=== PATIENT | female | born 1995 | race Hispanic/Latino ===

== ENCOUNTER 2022-05-03 17:51 | Inpatient (IN) | payer BC, OTHER ==
[2022-05-03 18:38] LABS: Hematocrit 35.4 % (36.0-45.0); Lymphocytes % 7.1 % (15.3-44.8); MCV 80.8 fL (80-100); MPV 7.4 fL (7.6-11.3); RBC Red Blood Cell Count 4.38 M/uL (3.86-4.86)
[2022-05-03] MEDS ORDERED: ACETAMINOPHEN 500 MG TAB PO ONE (18:39)
[2022-05-03] MEDS ORDERED: ACETAMINOPHEN 500 MG TAB ONE (18:45)
[2022-05-03 18:54] LABS: Albumin 2.7 g/dL (3.4-5.0); Bilirubin Total 0.3 mg/dL (0.2-1.0); Potassium 3.7 mmol/L (3.5-5.1); Protein, Total 7.2 g/dL (6.4-8.2)
[2022-05-03 19:12] LABS: SARS-COV-2 RT PCR NEGATIVE (NEGATIVE)
[2022-05-03 19:41] LABS: Specific Gravity 1.026 (1.005-1.030); Urine Bilirubin NEGATIVE (Negative); Urine Blood Negative (Negative); Urine Clarity Clear (Clear); Urine Color Yellow (Yellow); Urine Glucose NEGATIVE (Negative); Urine Mucus Slight /HPF (None Seen); Urine Protein 1+ (Negative); Urine Urobilinogen Normal (Normal); Urine pH 6.5 (5.0-7.0)
--- OUTSIDE RECORDS SUMMARY | 2022-05-03 20:37 | XMS REPORT | Continuity of Care Document ---
:1995 Author Organization [facility] t Address [address] [place] [address] Care Team Providers Name Role Phone PCP, PATIENT DOES NOT HAVE A Primary Care Physician UnavailZACH Calix Attending Clinician Unavailable Zach Lantigua MD Attending Clinician JULITA BURTON Attending Clinician Unavailable Itzel Sommer MA Attending Clinician Unavailable Julita Burton PA-C Attending Clinician Doctor Unassigned, [place] Attending Clinician Unavailable Ultrasound, Ang-Mfm Attending Clinician Unavailable Arielle Solomon MD Attending Clinician [phone] ARIELLE SOLOMON Attending Clinician Unavailable 2, [facility] Attending Clinician Unavailable Pob, [facility] Main Attending Clinician Unavailable Satya GANDHI, Michelle Huber Attending Clinician Unavailable Kathy Mar MD Attending Clinician KATHY MAR Attending Clinician Unavailable Payers Payer Name Policy Type Policy Number Effective Date Expiration Date Heracilo cordova AET[employer] CI [id number] [facility] [id number] 2020 00:00:00 [facility] [id number] 2021 [facility] STAR 00:00:00 Problems Condition Condition Condition Status Onset Resolution Last Treating Co mments Source Name Details Category Date Date Treatment Clinician Date Heartburn Heartburn Disease Active Uni vers during during 9-08 [place] 00 Medica l trimester trimester Bran ch High risk High risk Disease Active Uni vers , , 5-19 [place] Obesity in Obesity in Disease Active U nivers 5-19 ity of 00:00: [address] Obesity, Obesity, Disease Active Unive rs Class III, Class III, 5-19 it y of BMI BMI 00:00: [place] 40-49.9 40-49.9 00 Medical (morbid (morbid Branch obesity) obesity) Uterine Uterine Disease Active Univers fibroids fibroids - ity of affecting affecting 00:00: [place] , , 00 Me dical antepartum antepartum Br anch Vitamin D Vitamin D Disease Active Uni vers deficiency deficiency - it y of 00:00: [place] 00 Medical [place] Obesity Obesity Disease Active Univers (BMI (BMI 9-07 ity of 30-39.9) 30-39.9) 00:00: [place] [address] Medical [place] Allergies, Adverse Reactions, Alerts Allergy Allergy Status Severity Reaction(s) Onset Inactive Treating Comm ents Source Name Type Date Date Clinician NO KNOWN Drug Active Univers ALLERGIE Class ity of S [facility] Social History Social Habit Start Date Stop Date Quantity Comments Source ASSERTION 2021-08-18 University of 00:00:00 [facility] History [facility] University o f Alcohol Frequency [facility] edical Branch History [facility] University o f Alcohol Std [place] [facility] Drinks Branch History [facility] o f Alcohol Binge [place] Medic al Branch Exposure to 2022-04-19 2022-04-29 Not sure [facility] SARS-CoV-2 00:00:00 16:02:00 [facility] (event) Branch Alcohol intake 2022-04-29 2022-04-29 Ex-drinker [facility] 00:00:00 00:00:00 (finding) [facility] Tobacco use and 2021-12-19 2021-12-19 Smokeless tobacco Un iversity of exposure 00:00:00 00:00:00 non-user [facility] Alcohol Comment 2021-02-13 2021-02-13 Social Universit y of 00:00:00 00:00:00 [facility] Sex Assigned At [birth year] Universit y of 00:00:00 00:00:00 [facility] Smoking Status Start Date Stop Date Source Never smoked tobacco [facility] Medications Ordered Filled Start Stop Current Ordering Indication Dosage Frequency Signature Comments Components Source Medication Medication Date Date Medication? Clinician (SIG) Name Name calcium 2021-06 Yes Take by Univers carbonate 1-14 mouth. ity of (TUMS ORAL) 16:45: [address] calcium 2021-06 Yes Take by Univers carbonate 1-14 mouth. ity of (TUMS ORAL) 16:45: [address] calcium 2021-06 Yes Take by Univers carbonate 1-14 mouth. ity of (TUMS ORAL) 16:45: [address] calcium 2021-06 Yes Take by Univers carbonate 1-14 mouth. ity of (TUMS ORAL) 16:45: [address] calcium 2021-06 Yes Take by Univers carbonate 1-14 mouth. ity of (TUMS ORAL) 16:45: [address] lisdexamfet 2021-06- No 30mg Take 30 mg Univers amine 0-03 10-03 by mouth ity of (VYVANSE) 16:39: 00:00 every [place] 30 mg 29 :00 morning. Medical capsule Branch ergocalcife 2021-06- No [id number] Take Uni vers rol, 0-03 10-03 50,000 ity of vitamin d2, 16:39: 00:00 Units [place] 1,250 mcg 22 :00 mouth Medical (50,000 weekly. Branch unit) capsule Dextrometho 2021-06 Yes [id number] 10mg Take 10 mg Univers rphan HBr 0-03 by mouth 3 ity of 10 mg/5 mL 00:00: (three[place] Li[place] times Medical daily. Branch Dextrometho 2021-06 Yes [id number] 10mg Take 10 mg Univers rphan HBr 0-03 by mouth 3 ity of 10 mg/5 mL 00:00: (three[place] Li[place] times Medical daily. Branch Dextrometho 2021-06 Yes [id number] 10mg Take 10 mg Univers rphan HBr 0-03 by mouth 3 ity of 10 mg/5 mL 00:00: ([place] Li[place] 00 times Medical daily. Branch Dextrometho 2021-06 Yes [id number] 10mg Take 10 mg Univers rphan HBr 0-03 by mouth 3 ity of 10 mg/5 mL 00:00: (three[place] Li[place] 00 times Medical daily. Branch Dextrometho 2021-06 Yes [id number] 10mg Take 10 mg Univers rphan HBr 0-03 by mouth 3 ity of 10 mg/5 mL 00:00: ([place] Li[place] times Medical daily. Branch Dextrometho 2021-06 Yes [id number] 10mg Take 10 mg Univers rphan HBr 0-03 by mouth 3 ity of 10 mg/5 mL 00:00: ([place] 00 times Medical daily. Branch Dextrometho 2021-06 Yes [id number] 10mg Take 10 mg Univers rphan HBr 0-03 by mouth 3 ity of 10 mg/5 mL 00:00: ([place] times Medical daily. Branch Dextrometho 2021-06 Yes [id number] 10mg Take 10 mg Univers rphan HBr 0-03 by mouth 3 ity of 10 mg/5 mL 00:00: ([place] times Medical daily. Branch Dextrometho 2021-06 Yes [id number] 10mg Take 10 mg Univers rphan HBr 0-03 by mouth 3 ity of 10 mg/5 mL 00:00: ([place] times Medical daily. Branch Dextrometho 2021-06 Yes [id number] 10mg Take 10 mg Univers rphan HBr 0-03 by mouth 3 ity of 10 mg/5 mL 00:00: ([place] Li[place] times Medical daily. Branch Dextrometho 2021-06 Yes [id number] 10mg Take 10 mg Univers rphan HBr 0-03 by mouth 3 ity of 10 mg/5 mL 00:00: ([place] times Medical daily. Branch Dextrometho 2021-06 Yes [id number] 10mg Take 10 mg Univers rphan HBr 0-03 by mouth 3 ity of 10 mg/5 mL 00:00: (three[place] times Medical daily. Branch FOLIC ACID 2021- No Take by Uni vers ORAL 9-08 09-08 mouth. ity of 21:35: 00:00 [place] 32 :00 Medical Branch famotidine 2022-0 Yes [id number] 20mg Take 1 U nivers 20 mg 9-08 tablet by ity of tablet 00:00: mouth in [place] 00 the Medical morning Branch and 1 tablet in the evening. famotidine 2022-0 Yes [id number] 20mg Take 1 U nivers 20 mg 9-08 tablet by ity of tablet 00:00: mouth in [place] 00 the Medical morning Branch and 1 tablet in the evening. famotidine 2022-0 Yes [id number] 20mg Take 1 U nivers 20 mg 9-08 tablet by ity of tablet 00:00: mouth in [place] 00 the Medical morning Branch and 1 tablet in the evening. famotidine 2022-0 Yes [id number] 20mg Take 1 U nivers 20 mg 9-08 tablet by ity of tablet 00:00: mouth in [place] [address] the Medical morning Branch and 1 tablet in the evening. famotidine 2022-0 Yes [id number] 20mg Take 1 U nivers 20 mg 9-08 tablet by ity of tablet 00:00: mouth in [place] [address] the Medical morning Branch and 1 tablet in the evening. famotidine 2022-0 Yes [id number] 20mg Take 1 U nivers 20 mg 9-08 tablet by ity of tablet 00:00: mouth in [place] [address] the Medical morning Branch and 1 tablet in the evening. famotidine 2022-0 Yes [id number] 20mg Take 1 U nivers 20 mg 9-08 tablet by ity of tablet 00:00: mouth in [place] [address] the Medical morning Branch and 1 tablet in the evening. famotidine 2022-0 Yes [id number] 20mg Take 1 U nivers 20 mg 9-08 tablet by ity of tablet 00:00: mouth in [place] [address] the Medical morning Branch and 1 tablet in the evening. famotidine 2022-0 Yes [id number] 20mg Take 1 U nivers 20 mg 9-08 tablet by ity of tablet 00:00: mouth in [place] [address] the Medical morning Branch and 1 tablet in the evening. famotidine 2022-0 Yes [id number] 20mg Take 1 U nivers 20 mg 9-08 tablet by ity of tablet 00:00: mouth in [place] [address] the Medical morning Branch and 1 tablet in the evening. famotidine 2022-0 Yes [id number] 20mg Take 1 U nivers 20 mg 9-08 tablet by ity of tablet 00:00: mouth in [place] 00 the Medical morning Branch and 1 tablet in the evening. famotidine 2022-0 Yes [id number] 20mg Take 1 U nivers 20 mg 9-08 tablet by ity of tablet 00:00: mouth in [place] 00 the Medical morning Branch and 1 tablet in the evening. famotidine 2022-0 Yes [id number] 20mg Take 1 U nivers 20 mg 9-08 tablet by ity of tablet 00:00: mouth in [place] 00 the Medical morning Branch and 1 tablet in the evening. FOLIC ACID 2021-0 Yes Take by [facility] ORAL 8-10 mouth. ity of 16:36: [address] Branch FOLIC ACID 2021-0 Yes Take by [facility] ORAL 8-10 mouth. ity of 16:36: [address] Branch PNV 67-iron 2021-0 Yes [id number] 1{capsu Take 1 Univers ps-folate 6-17 le} capsule by ity of no.1-dha 00:00: mouth [place] (VITAFOL 00 daily. Medical ULTRA) 29 Branch mg iron- 1 mg-200 mg Cap PNV 67-iron 2021-0 Yes [id number] 1{capsu Take 1 Univers ps-folate 6-17 le} capsule by ity of no.1-dha 00:00: mouth [place] (VITAFOL 00 daily. Medical ULTRA) 29 Branch mg iron- 1 mg-200 mg Cap PNV 67-iron 2021-0 Yes [id number] 1{capsu Take 1 Univers ps-folate 6-17 le} capsule by ity of no.1-dha 00:00: mouth [place] (VITAFOL 00 daily. Medical ULTRA) 29 Branch mg iron- 1 mg-200 mg Cap PNV 67-iron 2021-0 Yes [id number] 1{capsu Take 1 Univers ps-folate 6-17 le} capsule by ity of no.1-dha 00:00: mouth [place] (VITAFOL 00 daily. Medical ULTRA) 29 Branch mg iron- 1 mg-200 mg Cap PNV 67-iron 2021-0 Yes [id number] 1{capsu Take 1 Univers ps-folate 6-17 le} capsule by ity of no.1-dha 00:00: mouth [place] (VITAFOL 00 daily. Medical ULTRA) 29 Branch mg iron- 1 mg-200 mg Cap PNV 67-iron 2022-0 Yes [id number] 1{capsu Take 1 Univers ps-folate 6-17 le} capsule by ity of no.1-dha 00:00: mouth [place] (VITAFOL 00 daily. Medical ULTRA) 29 Branch mg iron- 1 mg-200 mg Cap PNV 67-iron 2022-0 Yes [id number] 1{capsu Take 1 Univers ps-folate 6-17 le} capsule by ity of no.1-dha 00:00: mouth [place] (VITAFOL 00 daily. Medical ULTRA) 29 Branch mg iron- 1 mg-200 mg Cap PNV 67-iron 2022-0 Yes [id number] 1{capsu Take 1 Univers ps-folate 6-17 le} capsule by ity of no.1-dha 00:00: mouth [place] (VITAFOL 00 daily. Medical ULTRA) 29 Branch mg iron- 1 mg-200 mg Cap PNV 67-iron 2022-0 Yes [id number] 1{capsu Take 1 Univers ps-folate 6-17 le} capsule by ity of no.1-dha 00:00: mouth [place] (VITAFOL 00 daily. Medical ULTRA) 29 Branch mg iron- 1 mg-200 mg Cap PNV 67-iron 2-0 Yes [id number] 1{capsu Take 1 Univers ps-folate 6-17 le} capsule by ity of no.1-dha 00:00: mouth [place] (VITAFOL 00 daily. Medical ULTRA) 29 Branch mg iron- 1 mg-200 mg Cap PNV 67-iron 2-0 Yes [id number] 1{capsu Take 1 Univers ps-folate 6-17 le} capsule by ity of no.1-dha 00:00: mouth [place] (VITAFOL 00 daily. Medical ULTRA) 29 Branch mg iron- 1 mg-200 mg Cap PNV 67-iron 2022-0 Yes [id number] 1{capsu Take 1 Univers ps-folate 6-17 le} capsule by ity of no.1-dha 00:00: mouth [place] (VITAFOL 00 daily. Medical ULTRA) 29 Branch mg iron- 1 mg-200 mg Cap PNV 67-iron 2022-0 Yes [id number] 1{capsu Take 1 Univers ps-folate 6-17 le} capsule by ity of no.1-dha 00:00: mouth [place] (VITAFOL 00 daily. Medical ULTRA) 29 Branch mg iron- 1 mg-200 mg Cap PNV 67-iron 2021-0 Yes [id number] 1{capsu Take 1 Univers ps-folate 6-17 le} capsule by ity of no.1-dha 00:00: mouth [place] (VITAFOL 00 daily. Medical ULTRA) 29 Branch mg iron- 1 mg-200 mg Cap PNV 67-iron 0 Yes [id number] 1{capsu Take 1 Univers ps-folate 6-17 le} capsule by ity of no.1-dha 00:00: mouth [place] (VITAFOL 00 daily. Medical ULTRA) 29 Branch mg iron- 1 mg-200 mg Cap PNV 67-iron 0 Yes [id number] 1{capsu Take 1 Univers ps-folate 6-17 le} capsule by ity of no.1-dha 00:00: mouth [place] (VITAFOL 00 daily. Medical ULTRA) 29 Branch mg iron- 1 mg-200 mg Cap PNV 67-iron 0 Yes [id number] 1{capsu Take 1 Univers ps-folate 6-17 le} capsule by ity of no.1-dha 00:00: mouth [place] (VITAFOL 00 daily. Medical ULTRA) 29 Branch mg iron- 1 mg-200 mg Cap FOLIC ACID Yes Take by [facility] ers ORAL 5-19 mouth. ity of 15:11: [place] 15 Medical Branch lisdexamfet 2021-0 Yes 30mg Take 30 mg Univers amine 1-28 by mouth ity of (VYVANSE) 13:38: every [place] 30 mg 57 morning. Medical capsule Branch ergocalcife 2021-0 Yes [id number] Take Univ ers rol, 1- 50,000 ity of vitamin d2, 13:38: Units [place] 1,250 mcg 57 mouth Medical (50,000 weekly. Branch unit) capsule lisdexamfet 0 Yes 30mg Take 30 mg Univers amine 1-28 by mouth ity of (VYVANSE) 13:38: every [place] 30 mg 57 morning. Medical capsule Branch ergocalcife 2021-0 Yes [id number] Take Univ ers rol, 1-28 50,000 ity of vitamin d2, 13:38: Units [place] 1,250 mcg 57 mouth Medical (50,000 weekly. Branch unit) capsule lisdexamfet 2-0 Yes 30mg Take 30 mg Univers amine 1-28 by mouth ity of (VYVANSE) 13:38: every [place] 30 mg 57 morning. Medical capsule Branch ergocalcife 2-0 Yes [id number] Take Univ ers rol, 1- 50,000 ity of vitamin d2, 13:38: Units [place] 1,250 mcg 57 mouth Medical (50,000 weekly. Branch unit) capsule lisdexamfet 2-0 Yes 30mg Take 30 mg Univers amine 1-28 by mouth ity of (VYVANSE) 13:38: every [place] 30 mg 57 morning. Medical capsule Branch ergocalcife 2-0 Yes [id number] Take Univ ers rol, 1-28 50,000 ity of vitamin d2, 13:38: Units [place] 1,250 mcg 57 mouth Medical (50,000 weekly. Branch unit) capsule lisdexamfet 2-0 Yes 30mg Take 30 mg Univers amine 1-28 by mouth ity of (VYVANSE) 13:38: every [place] 30 mg 57 morning. Medical capsule Branch ergocalcife 2-0 Yes [id number] Take Univ ers rol, 1- 50,000 ity of vitamin d2, 13:38: Units [place] 1,250 mcg 57 mouth Medical (50,000 weekly. Branch unit) capsule Immunizations Ordered Filled Immunization Date Status Comments [facility] e Immunization Name Name [facility] 2022-03-11 Completed University of 00:00:00 [facility] TDAP 2022-03-11 Completed University of 00:00:00 [facility] TDAP 2022-03-11 Completed University of 00:00:00 [facility] TDAP 2022-03-11 Completed University of 00:00: [facility] TDAP 2022-03-11 Completed University of 00:00:00 [facility] TDAP 2022-03-11 Completed University of 00:00:00 [facility] TDAP 2022-03-11 Completed University of 00:00:00 [facility] TDAP 2022-03-11 Completed University of 00:00:00 [facility] TDAP 2022-03-11 Completed University of 00:00:00 [place] [facility] TDAP 2022-03-11 Completed University of 00:00:00 [place] [facility] TDAP 2022-03-11 Completed University of 00:00:00 [place] [facility] TDAP 2022-03-11 Completed University of 00:00:00 [facility] Branch Vital Signs Vital Name Observation Time Observation Value Comments Source Systolic blood 2022-04-29 22:23:00 121 mm[Hg] Univer sity of pressure [place] [facility] Diastolic blood 2022-04-29 22:23:00 78 mm[Hg] Unive rsity of pressure [place] [facility] Heart rate 2022-04-29 22:23:00 105 /min Universi ty of [place] [facility] Body temperature 2022-04-29 22:23:00 36.72 Raiza Univ ersity of [place] [facility] Respiratory rate 2022-04-29 22:23:00 18 /min Univ ersity of [place] [facility] Body height 2022-04-29 22:23:00 160 cm Universi ty of [place] [facility] Body weight 2022-04-29 22:23:00 115.032 kg Universi ty of [place] [facility] BMI 2022-04-29 22:23:00 44.92 kg/m2 Universi ty of [place] [facility] Systolic blood 2022-04-22 22:44:00 116 mm[Hg] Univer sity of pressure [place] [facility] Diastolic blood 2022-04-22 22:44:00 75 mm[Hg] Unive rsity of pressure [place] [facility] Heart rate 2022-04-22 22:44:00 78 /min Universi ty of [place] [facility] Body temperature 2022-04-22 22:44:00 37 Raiza Univ ersity of [place] [facility] Body height 2022-04-22 22:44:00 160 cm Universi ty of [place] [facility] Body weight 2022-04-22 22:44:00 115.486 kg Universi ty of [place] [facility] BMI 2022-04-22 22:44:00 45.10 kg/m2 Universi ty of [place] [facility] Systolic blood 2022-04-11 21:37:00 116 mm[Hg] Univer sity of pressure [place] [facility] Diastolic blood 2022-04-11 21:37:00 80 mm[Hg] Unive rsity of pressure [place] [facility] Heart rate 2022-04-11 21:37:00 99 /min Universi ty of [place] [facility] Body temperature 2022-04-11 21:37:00 36.94 Raiza Univ ersity of [place] [facility] Respiratory rate 2022-04-11 21:37:00 18 /min Univ ersity of [place] [facility] Body height 2022-04-11 21:37:00 160 cm Universi ty of [place] [facility] Body weight 2022-04-11 21:37:00 113.036 kg Universi ty of [place] [facility] BMI 2022-04-11 21:37:00 44.14 kg/m2 Universi ty of [place] [facility] Systolic blood 2022-03-26 21:19:00 133 mm[Hg] Univer sity of pressure [place] [facility] Diastolic blood 2022-03-26 21:19:00 84 mm[Hg] Unive rsity of pressure [place] [facility] Heart rate 2022-03-26 21:19:00 106 /min Universi ty of [place] [facility] Body temperature 2022-03-26 21:19:00 36.89 Raiza Univ ersity of [place] [facility] Respiratory rate 2022-03-26 21:19:00 18 /min Univ ersity of [place] [facility] Body height 2022-03-26 21:19:00 160 cm Universi ty of [place] [facility] Body weight 2022-03-26 21:19:00 113.399 kg Universi ty of [place] [facility] BMI 2022-03-26 21:19:00 44.29 kg/m2 Universi ty of [place] [facility] Systolic blood 2022-03-11 21:23:00 113 mm[Hg] Univer sity of pressure [place] [facility] Diastolic blood 2022-03-11 21:23:00 79 mm[Hg] Unive rsity of pressure [place] [facility] Heart rate 2022-03-11 21:23:00 86 /min Universi ty of [place] [facility] Body temperature 2022-03-11 21:23:00 36.94 Raiza Univ ersity of [place] [facility] Respiratory rate 2022-03-11 21:23:00 18 /min Univ ersity of [place] [facility] Body height 2022-03-11 21:23:00 160 cm Universi ty of [place] [facility] Body weight 2022-03-11 21:23:00 111.131 kg Universi ty of [place] [facility] BMI 2022-03-11 21:23:00 43.40 kg/m2 Universi ty of [facility] Systolic blood 2022-02-14 21:33:00 118 mm[Hg] Univer sity of pressure [facility] Diastolic blood 2022-02-14 21:33:00 70 mm[Hg] Unive rsity of [facility] Heart rate 2022-02-14 21:33:00 101 /min Universi ty [facility] Body temperature 2022-02-14 21:33:00 36.5 [facility] 2022-02-14 21:33:00 160 cm Universi ty of [facility] Body weight 2022-02-14 21:33:00 110.768 kg Universi ty [facility] BMI 2022-02-14 21:33:00 43.26 kg/m2 Universi ty [facility] Systolic blood 2022-01-16 21:36:00 110 mm[Hg] Univer sity of [facility] Diastolic blood 2022-01-16 21:36:00 73 mm[Hg] Unive rsity of [facility] Heart rate 2022-01-16 21:36:00 97 /min Universi ty [facility] Body temperature 2022-01-16 21:36:00 36.83 [facility] Body height 2022-01-16 21:36:00 160 cm Universi ty [facility] Body weight 2022-01-16 21:36:00 [facility] BMI 2022-01-16 21:36:00 42.83 kg/m2 [facility] Procedures Procedure Date / Time Performed Performing Clinician Sourc e POCT URINALYSIS W/O 2022-04-29 00:00:00 Zach Lantigua [facility] SPECIFIC GRAVITY [facility] GC & CHLAMYDIA 2022-04-22 22:48:00 Julita Burton [place] AMPLIFIED ASSAY [facility] DSU PRE-OP 2022-04-22 06:01:00 Doctor Unassigned, [facility] W/O 2022-04-22 00:00:00 Julita Burton [facility] POCT URINALYSIS W/O 2022-04-11 21:49:00 Zach Lantigua [facility] DISABILITY/FMLA 2022-04-04 05:01:00 Doctor Unassigned, Jeri Zuniga [facility] NON-STRESS TEST 2022-03-27 02:12:04 Zach Lantigua [facility] POCT URINALYSIS W/O 2022-03-26 00:00:00 Julita Burton [facility] TDAP VACCINE, >11 YRS, 2022-03-11 21:58:20 Julita Burton [facility] POCT URINALYSIS W/O 2022-03-11 21:41:00 Julita Burton [facility] POCT URINALYSIS W/O 2022-02-14 00:00:00 Zach Lantigua [facility] POCT URINALYSIS W/O 2022-01-16 [facility] 2021-12-12 05:01:00 Doctor Unassigned, Jeri Anne [facility] Encounters Start End Encounter Admission Attending Care Care Encounter Source Date/Time Date/Time Type Type Clinicians Facility Department ID 2021-09-07 Outpatient ALYCE MEAD [id number] [place] 14:38:18 [id number] [facility] 2021-09-05 Outpatient ALYCE MEAD [id number] [place] 13:08:44 [id number] [facility] 2022-05-06 2022-05-06 Outpatient R ZACH LANTIGUA [facility] [id number] Univers 16:15:00 [facility] 2022-04-29 Outpatient ZACH EDMONDS FLISABELLA [facility] [id number] Univers 15:45:00 16[facility]48:[facility]22-04-29 2022-04-29 Routine Zach Lantigua [facility] [id number] Univers 15:45:00 16:48:53 Joesph NAVARRETE 350.1.13.10 ity of [place] [id number] [address] 2022-04-29 2022-04-29 Outpatient R MICHEAL [facility] [id number] Univers 16:30:00 16:30:00 JULITA ity [facility] 2022-04-23 2022-04-23 Patient Ros [facility] [id number] Univers 00:00:00 00:00:00 Secure Msg Itzel SIMS 350.1.13.10 ity of P[place] [facility] [id number] [address] 2022-04-22 2022-04-22 Outpatient R MICHEAL [facility] [id number] Univers 16:15:00 17:18:07 JULITA [facility] 2022-04-22 2022-04-22 Routine Zach Lantigua [facility] [id number] Univers 16:15:00 17:18:07 Julita Burton 350.1.13.10 ity of [place] [id number] [address] 2022-04-22 2022-04-22 Orders Doctor BABATUNDE [id number] Univers 00:00:00 00:00:00 Only Unassigned, OSCAR 350.1.13.10 ity of [place] [facility] 4.2.7.2.686 [place] as [id number] [address] 2022-04-19 2022-04-19 Farm Helper Ultrasound, LuisMfcarolyn [facility] [id number] .[id number] Univers 15:30:00 16:00:00 Visit Arielle Solomon HEALTH CARE MANAGER 350.1. 13.10 ity of [facility] 4.2.7.2.686 [place] as MATERNAL [id number] Med ical & CHILD [address] [place] [address] 2022-04-19 2022-04-19 Outpatient P JUANITO [facility] [id number] Univers 15:30:00 15:30:00 CHASEY ity of [facility] 2022-04-12 2022-04-12 Outpatient R [facility] [id number] Univers 16:15:00 16:15:00 ity of [facility] 2022-04-11 2022-04-11 Outpatient R ZACH LANTIGUA [facility] [id number] Univers 16:15:00 17:16:33 ity of [facility] 2022-04-11 2022-04-11 Routine Zach Lantigua [facility] [id number] Univers 16:15:00 17:16:33 Cam LANDON 350.1.13.10 ity of [place] [id number] Pr dic[address] 2022-04-04 2022-04-04 Orders Doctor BABATUNDE [id number] Univers 00:00:00 00:00:00 Only Unassigned, OSCAR 350.1.13.10 ity of [place] [facility] 4.2.7.2.686 [place] [id number] [address] 2022-03-27 2022-03-27 Telephone [facility]igua [facility] [facility] 1.2.840.114 [id number] Univers 00:00:00 00:00:00 Cam LANDON 350.1.13.10 i [place] [phone] Pr dical NAL [address] [place] [address] 2022-03-26 2022-03-26 Outpatient R ZACH LANTIGUA [facility] [id number] Univers 16:00:00 17:11:51 ity of [facility] 2022-03-26 2022-03-26 Routine Zach Lantigua [facility] 1.2.390.048 [id number] Univers 16:00:00 17:11:51 Cam LANDON 350.1.13.10 ity of [place] [phone] Pr dical NAL [address] [place] [address] 2022-03-14 2022-03-14 Farm Helper Pilo, Mary Kate [facility] 1.2 .840.114 [id number] Univers 15:15:00 15:54:45 Visit Arielle Solomon HEALTH CARE MANAGER 350.1. 13.10 ity of REGIONAL 4.2.7.2.686 [place] MATERNAL [phone] [facility] ical & CHILD [address] [place] [address] 2022-03-14 2022-03-14 Outpatient P JUANITO [facility] [id number] Univers 15:15:00 15:15:00 [facility]-03-11 2022-03-11 Outpatient R MICHEAL [facility] [id number] Univers 16:30:00 17:11:17 JULITA [facility] 2022-03-11 2022-03-11 Routine Micheal [facility] 1.2.104.083 [id number] Univers 16:30:00 17:11:17 Julita NAVARRETE 350.1.13.10 ity of [place] [phone] Pr dic[address] 2022-03-07 2022-03-07 Outpatient R MICHEAL [facility] [id number] Univers 16:15:00 16:15:00 JULITA [facility] 2022-02-14 2022-02-14 Outpatient R ZACH LANTIGUA [facility] [id number] Univers 16:15:00 16:58:31 itshai [facility] 2022-02-14 2022-02-14 Routine Zach Lantigua [facility] 1.2.290.596 [id number] Univers 16:15:00 16:58:31 Joesph NAVARRETE 350.1.13.10 ity of [place] [phone] Pr dical NAL [address] [place] [address] 2022-01-28 2022-01-28 Farm Helper 2, Adc Lab [facility] 1.2.840.114 [id number] Univers 15:30:00 15:45:00 Visit Terell Zach Joesph NAVARRETE 350.1.13.10 it[place] [phone] Pr dical NAL [address] [facility] 2022-01-28 2022-01-28 Outpatient R ZACH LANTIGUA [facility] [id number] Univers 15:30:00 15:30:00 ity of [facility] 2022-01-22 2022-01-22 Outpatient P [facility] [id number] Univers 15:00:00 15:00:00 ity of [facility] 2022-01-16 2022-01-16 Outpatient R MICHEAL [facility] [id number] Univers 16:15:00 17:06:45 JULITA ity [facility] 2022-01-16 2022-01-16 [facility] 1.2.635.152 [id number] Univers 16:15:00 17:06:45 Julita NAVARRETE 350.1.13.10 ity of [place] [phone] Pr dical NAL [address] [facility] 2021-12-19 2021-12-19 Outpatient R ZACH LANTIGUA [facility] [id number] Univers 16:15:00 17:18:10 ity of [facility] 2021-12-19 2021-12-19 Routine Terell Zach [facility] 1.2.532.622 [id number] Univers 16:15:00 17:18:10 Joesph VLADIMIRJASMIN 350.1.13.10 ity of Visit [facility] [place] [phone] Pr dical NAL [address] [facility] 2021-12-19 2021-12-19 Orders Doctor BABATUNDE 1.2.840.114 [id number] Univers 00:00:00 00:00:00 Only Unassigned, OSCAR 350.1.13.10 ity of [place] [facility] 4.2.7.2.686 [place] as [phone] [address] 2021-12-182021-12-18 Telephone Zach Lantigua [facility] 1.2.840.114 [id number] Univers 00:00:00 00:00:00 Joesph NAVARRETE 350.1.13.10 i ty of [place] [phone] Pr dical [facility] [address] [facility] 2021-12-12 2021-12-12 Farm Helper Chel, Lorenzo Lab Main [facility] 1.2.8 40.114 [id number] Univers 08:00:00 08:15:00 Visit Zach Lantigua [place] 350.1.13.10 ity of [place] [phone] [facility] [address] [facility] 2021-12-12 2021-12-12 Outpatient R ZACH LANTIGUA [facility] [id number] Univers 08:00:00 08:00:00 ity of [facility] 2021-12-12 2021-12-12 Orders Doctor BABATUNDE 1.2.840.114 [id number] Univers 00:00:00 00:00:00 Only Unassigned, OSCAR 350.1.13.10 ity of [place] [facility] 4.2.7.2.686 [place] as [phone] [address] 2021-11-23 2021-11-23 [facility] 1.2.840.114 [id number] Univers 00:00:00 00:00:00 Julita NAVARRETE 350.1.13.10 i ty [place] [phone] [facility] [address] [facility] 2021-11-22 2021-11-22 Outpatient R MICHEAL [facility] [id number] Univers 16:15:00 17:13:09 JULITA pérez [facility] 2021-11-22 2021-11-22 [facility] 1.2.382.308 [id number] Univers 16:15:00 17:13:09 Julita NAVARRETE 350.1.13.10 ity of [place] [phone] Pr dical NAL [address] [facility] 2021-11-20 2021-11-20 Farm Helper Lorenzo Milligan Lab Main [facility] 1.2.8 40.114 [id number] Univers 07:30:00 07:45:00 Visit Zach Lantigua 350.1.13.10 ity of [place] [phone] Pr dical NAL [address] [facility] 2021-11-20 2021-11-20 Outpatient R ZACH LANTIGUA [facility] [id number] Univers 07:30:00 07:30:00 ity [facility] 2021-11-19 2021-11-19 Outpatient R MICHEAL [facility] [id number] Univers 07:30:00 07:30:00 [facility]-11 2021-11-11 Nurse BABATUNDE Hernadez 1.2.840.114 [id number] Univers 00:00:00 00:00:00 Triage Michelle MOORE 350.1.13.10 ity [facility] 4.2.7.2.686 [place] [phone] [address] 2021-11-02 2021-11-02 Outpatient R [facility] [id number] Univers 09:00:00 09:00:00 ity [facility] 2021-11-01 2021-11-01 Outpatient R [facility] [id number] Univers 07:30:00 07:30:00 ity [facility] 2021-11-01 2021-11-01 Telephone Zach Lantigua [facility] 1.2.840.114 [id number] Univers 00:00:00 00:00:00 Joesph NAVARRETE 350.1.13.10 i ty of [place] [phone] Pr dical NAL [address] [facility] 2021-10-25 2021-10-25 Outpatient R ZACH LANTIGUA [facility] [id number] Univers 14:30:00 16:06:50 ity [facility] 2021-10-25 2021-10-25 Initial Zach Lantigua [place] 1.2.950.338 [id number] Univers 14:30:00 16:06:50 Cam LANDON 350.1.13.10 ity of [place] [phone] Pr dic[address] 2021-10-25 2021-10-25 Orders Doctor BABATUNDE 1.2.840.114 [id number] Univers 00:00:00 00:00:00 Only Unassigned, OSCAR 350.1.13.10 ity of [place] [facility] 4.2.7.2.686 [place] as [phone] [address] 2021-07-09 2021-07-09 Letter Ad, [facility] 1.2.840.114 [id number] Univers 00:00:00 00:00:00 (Out) Kathy NAVARRETE 350.1.13.10 ity [place] [phone] [address] 2021-07-09 2021-07-09 Telephone Ad, [facility] 1.2.335.322 [id number] Univers 00:00:00 00:00:00 Kathy NAVARRETE 350.1.13.10 ity of [place] [phone] Pr dical [address] 2021-07-06 2021-07-06 Office Ad, [facility] 1.2.840.114 [id number] Univers 13:00:00 14:12:28 Visit Kathy NAVARRETE 350.1.13.10 ity [place] [phone] Pr dical [address] 2021-07-06 2021-07-06 Outpatient R ADUM, [facility] [id number] Univers 13:00:00 13:00:00 KATHY ity [facility] 2021-07-06 2021-07-06 Outpatient R [facility] [id number] Univers 13:00:00 13:00:00 ity of [facility] 2021-07-06 2021-07-06 Farm Helper Chel, Adc Lab Main [facility] 1.2.8 40.114 [id number] Univers 09:45:00 10:00:00 Visit Adum, Kathy Pisano [place] 350.1.13.10 ity of [facility] [place] [phone] Pr dical NAL [address] [facility] 2021-07-06 2021-07-06 Outpatient R ADUM, [facility] [id number] Univers 09:45:00 09:45:00 KATHY itshai [facility] 2021-07-06 2021-07-06 Outpatient R ADUM, [facility] [id number] Univers 09:45:00 09:45:00 KATHY itshai [facility] 2021-07-05 2021-07-05 Telephone Ad, [facility] 1.2.215.825 [id number] Univers 00:00:00 00:00:00 Kathy NAVARRETE 350.1.13.10 ity of [facility] [place] [phone] Pr dical NAL [address] [facility] 2021-05-23 2021-05-23 Telephone Ad, [facility] 1.2.951.245 [id number] Univers 00:00:00 00:00:00 Kathy NAVARRETE 350.1.13.10 ity of [facility] [place] [phone] Pr dical [facility] [address] [facility] 2021-05-23 2021-05-23 Orders Doctor BABATUNDE 1.2.840.114 [id number] Univers 00:00:00 00:00:00 Only Unassigned, OSCAR 350.1.13.10 ity of [place] [facility] 4.2.7.2.686 [place] as [phone] [address] 2021-05-23 2021-05-23 Telephone Adum, [facility] 1.2.502.622 [id number] Univers 00:00:00 00:00:00 Kathy Pisano [place] 350.1.13.10 ity of [facility] [place] [phone] Pr dical NAL [address] [place] [address] 2021-05-21 2021-05-21 Refill Adum, [facility] 1.2.840.114 [id number] Univers 00:00:00 00:00:00 Kathy L [place] 350.1.13.10 ity of [place] [phone] Pr dical NAL [address] [place] [address] 2021-05-16 2021-05-16 Outpatient R ADUM, [facility] [id number] Univers 00:00:00 00:00:00 KATHY ity [facility] 2021-05-16 2021-05-16 Outpatient R ADUM, [facility] [id number] Univers 00:00:00 00:00:00 KATHY ity [facility] 2021-05-11 2021-05-11 Outpatient R ADUM, [facility] [id number] Univers 14:00:00 14:00:00 KATHY ity [facility] 2021-05-10 2021-05-10 Telephone Ad, [facility] 1.2.851.114 [id number] Univers 00:00:00 00:00:00 Kathy L [place] 350.1.13.10 ity of [facility] [place] [phone] Pr dical NAL [address] [place] [address] 2021-05-08 2021-05-08 Telephone Ad, [facility] 1.2.305.152 [id number] Univers 00:00:00 00:00:00 Kathy L [place] 350.1.13.10 ity of [place] [phone] Pr dical NAL [address] [place] [address] 2021-05-02 2021-05-02 Telephone Ad, [facility] 1.2.515.647 [id number] Univers 00:00:00 00:00:00 Kathy L [place] 350.1.13.10 ity of [place] [phone] Pr dical NAL [address] [place] [address] 2021-04-11 2021-04-11 Telephone Adum, [facility] 1.2.917.046 [id number] Univers 00:00:00 00:00:00 Kathy GILBERTJASMIN 350.1.13.10 ity of [place] [phone] Pr dical NAL [address] [place] [address] 2021-04-11 2021-04-11 Telephone Adum, [facility] 1.2.388.698 [id number] Univers 00:00:00 00:00:00 Kathy NAVARRETE 350.1.13.10 ity of [place] [phone] Pr dical NAL [address] [place] [address] 2021-04-06 2021-04-06 Outpatient R ADUM, [facility] [id number] [facility] 14:00:00 15:14:35 KATHY itshai of [facility] 2021-04-06 2021-04-06 Office Adum, [facility] 1.2.840.114 [id number] Univers 13:22:21 15:14:35 Visit Ktahy NAVARRETE 350.1.13.10 ity of [facility] [place] [phone] Pr dic[address] 2021-04-06 2021-04-06 Outpatient R ADUM, [facility] [id number] Univers 14:00:00 14:00:00 KATHY pérez of [facility] 2021-04-06 2021-04-06 Orders Doctor BABATUNDE 1.2.840.114 [id number] Univers 00:00:00 00:00:00 Only Unassigned, OSCAR 350.1.13.10 ity of [place] [facility] 4.2.7.2.686 [place] as [phone] [address] 2021-03-07 2021-03-07 Orders Doctor BABATUNDE 1.2.840.114 [id number] Univers 00:00:00 00:00:00 Only Unassigned, OSCAR 350.1.13.10 ity of [place] [facility] 4.2.7.2.686 [place] as [phone] [address] 2021-02-21 2021-02-21 Case Ad, [facility] 1.2.840.114 [id number] Univers 00:00:00 00:00:00 Management Kathy Navarrete 350.1.13.10 ity khadar [place] [phone] Pr dical nal [address] [facility] 2021-02-13 2021-02-13 [facility] 1.2.840.114 [id number] Univers 14:44:30 15:52:04 Visit Kathy Navarrete 350.1.13.10 ity khadar [place]2.[place] [phone] Pr dical nal [address] [facility] 2021-02-13 2021-02-13 Outpatient R [facility] [id number] Univers 14:30:00 14:30:00 [facility] Test Description Test Time Test Comments Results Result Comments Source POCT URINALYSIS W/O SPECIFIC GRAVITY 2022-04-29 22:20:00 Test Item Value Reference Range Interpretation Comme nts POCT PH U (test code = 3254) n/a 5-8 POCT U LEUK EST (test code = 3263) n/a Negative - Negative POCT U NIT (test code = 3262) n/a Negative - Negative POCT U PROT (test code = 3259) negative Negative - Negative POCT U GLU (test code = 3256) negative Negative - Negative POCT U KETONE (test code = 3258) n/a Negative - Negative POCT U BLD (test code = 3257) n/a Negative - Negative [facility] [id number] 22:44:00 Test Item Value Reference Range Interpretation Comments POCT PH U (test code = 3254) n/a 5-8 POCT U LEUK EST (test code = 3263) n/a Negative - Negative POCT U NIT (test code = 3262) n/a Negative - Negative POCT U PROT (test code = 3259) Trace Negative - Negative POCT U GLU (test code = 3256) Normal Negative - Negative POCT U KETONE (test code = 3258) n/a Negative - Negative POCT U BLD (test code = 3257) n/a Negative - [facility] [id number] 22:44:00 Test Item Value Reference Range Interpretation Comments POCT PH U (test code = 3254) n/a 5-8 POCT U LEUK EST (test code = 3263) n/a Negative - Negative POCT U NIT (test code = 3262) n/a Negative - Negative POCT U PROT (test code = 3259) Trace Negative - Negative POCT U GLU (test code = 3256) Normal Negative - Negative POCT U KETONE (test code = 3258) n/a Negative - Negative POCT U BLD (test code = 3257) n/a Negative - Negative [facility] [id number] 21:49:00 Test Item Value Reference Range Interpretation Comments POCT PH U (test code = 3254) n/a 5-8 POCT U LEUK EST (test code = n/a Negative - Negative 3263) POCT U NIT (test code = 3262) n/a Negative - Negative POCT U PROT (test code = 3259) negative Negative - Negative POCT U GLU (test code = 3256) negative Negative - Negative POCT U KETONE (test code = 3258) n/a Negative - Negative POCT U BLD (test code = 3257) n/a Negative - Negative [facility] [id number] 21:33:00 Test Item Value Reference Range Interpretation Comments POCT PH U (test code = 3254) n/a 5-8 POCT U LEUK EST (test code = 3263) n/a Negative - Negative POCT U NIT (test code = 3262) n/a Negative - Negative POCT U PROT (test code = 3259) neg Negative - Negative POCT U GLU (test code = 3256) neg Negative - Negative POCT U KETONE (test code = 3258) n/a Negative - Negative POCT U BLD (test code = 3257) n/a Negative - Negative [facility] [id number] 21:42:00 Test Item Value Reference Range Interpretation Comments POCT PH U (test code = 3254) n/a 5-8 POCT U LEUK EST (test code = n/a Negative - Negative 3263) POCT U NIT (test code = 3262) n/a Negative - Negative POCT U PROT (test code = 3259) trace Negative - Negative POCT U GLU (test code = 3256) negative Negative - Negative POCT U KETONE (test code = 3258) n/a Negative - Negative POCT U BLD (test code = 3257) n/a Negative - Negative [facility] SPECIFIC [id number] 22:03:00 Test Item Value Reference Range Interpretation Comments POCT PH U (test code = 3254) n/a 5-8 POCT U LEUK EST (test code = n/a Negative - Negative 3263) POCT U NIT (test code = 3262) n/a Negative - Negative POCT U PROT (test code = 3259) Negative Negative - Negative POCT U GLU (test code = 3256) Normal Negative - Negative POCT U KETONE (test code = 3258) n/a Negative - Negative POCT U BLD (test code = 3257) n/a Negative - Negative [facility] SPECIFIC [id number] 21:34:00 Test Item Value Reference Range Interpretation Comments POCT PH U (test code = 3254) n/a 5-8 POCT U LEUK EST (test code = n/a Negative - Negative 3263) POCT U NIT (test code = 3262) n/a Negative - Negative POCT U PROT (test code = 3259) Negative Negative - Negative POCT U GLU (test code = 3256) Normal Negative - Negative POCT U KETONE (test code = 3258) n/a Negative - Negative POCT U BLD (test code = 3257) n/a Negative - Negative [facility]2018-07-31 17:01:17CLINICAL INDICATION: N92.6 Irregular menstruation, unspecified TECHNIQUE:Real-time and doppler transvaginal ultrasound evaluation of the pelvis was performed on the [employer].Comparisonstudy: Transabdominal and transvaginal exams are compared.FINDINGS:Uterus: 7.0 x 4.5 x 5.5 cm. Thereis 2.4 x 1.9 x 2.1 cm anterior fundal intramural fibroid. Remainder of the myometrium is normal. Endometrial stripe: 6.7 mm. IUD is present and appropriately placed. Right ovary: 3.6 x 2.4 x 3.2 cm with volume of 14.3 ml. Blood flow is present. There is a 2.8 x 2 x 2.2 cm simple cyst. Left Ovary: 4.7 x 2.8 x 3.9 cm with volume of 26.9 ml. Blood flow is present. There is a 3.5 x 2.1 x 3.2 cm simple cyst. Adnexa: There is no adnexal mass.Cul-de-sac: NormalIMPRESSION:1. 2.4 cm anterior fundal intramural fibroid.2. IUD is present and appropriately placed.3. Bilateral ovarian simple cysts measuring 2.8 cm in greatest diameter on the right and 3.5 cm in greatest diameter on the left.
--- NOTE | 2022-05-03 21:05 | RAD REPORT ---
EXAM DESCRIPTION: Emilie Jones (2 Views)05/03/2022 8:27 pm CLINICAL HISTORY: Cough COMPARISON: None FINDINGS: The lungs appear clear of acute infiltrate. The heart is normal size IMPRESSION: No acute abnormalities displayed
[2022-05-03] MEDS ORDERED: ACETAMINOPHEN 500 MG TAB PO PRN (21:23)
[2022-05-03] MEDS ORDERED: MAGNES/ALUMIN/SIMET 30ML UCUP PO PRN (21:28)
[2022-05-03 22:24] VITALS: BMI 44.2
[2022-05-03] MEDS: OSELTAMIVIR 75 MG CAP PO SCH (23:36)
[2022-05-04] MEDS ORDERED: METHYLERGONOVINE 0.2MG/ML AMP IM PRN (06:30)
[2022-05-04] MEDS ORDERED: Ringers Lactate 1,000 ML IV PRN (06:30)
[2022-05-04] MEDS ORDERED: CARBOPROST TROME 250 MCG/ML IM PRN (06:30)
[2022-05-04 07:00] LABS: Absolute Lymphocytes (CBC) 1.2 K/uL (0.7-4.9); Hematocrit 34.9 % (36.0-45.0); Lymphocytes % 9.9 % (15.3-44.8); MPV 7.7 fL (7.6-11.3); RBC Red Blood Cell Count 4.37 M/uL (3.86-4.86)
[2022-05-04] MEDS ORDERED: Ringers Lactate 1,000 ML IV SCH (07:00)
[2022-05-04] MEDS ORDERED: BUTORPHANOL 1 MG/ML INJ IV PRN (08:47)
[2022-05-04] MEDS ORDERED: BUTORPHANOL 1 MG/ML INJ ONE (08:47)
[2022-05-04] MEDS ORDERED: PROMETHAZINE INJ 25 MG/ML AMP ONE (08:47)
[2022-05-04] MEDS ORDERED: PROMETHAZINE INJ 25 MG/ML AMP IM PRN ×2 (08:48→09:34)
[2022-05-04] MEDS: OSELTAMIVIR 75 MG CAP PO SCH ×2 (09:51→21:32)
[2022-05-04] MEDS: BUTORPHANOL 1 MG/ML INJ IV PRN ×2 (10:46→13:07)
[2022-05-04] MEDS ORDERED: LIDOCAINE 2% INJ, 20 mL 20 ML ONE (14:40)
[2022-05-04] MEDS ORDERED: OXYTOCIN/LR 20 UNIT/1,000 ML BAG IV ONE (14:41)
[2022-05-04 15:14] LABS: RPR (Rapid Plasma Reagin) NON-REACT (NON-REACT)
[2022-05-04] MEDS ORDERED: DOCUSATE NA/SENNA CONC 1 TAB PO PRN (17:57)
[2022-05-04] MEDS ORDERED: Oxycodone HCl/Acetaminophen 1 TAB TAB PO PRN (18:04)
[2022-05-04] MEDS: IBUPROFEN 600 MG TAB PO PRN (22:28)
[2022-05-05] MEDS: Oxycodone HCl/Acetaminophen 1 TAB TAB PO PRN ×3 (02:59→17:41)
[2022-05-05] MEDS: IBUPROFEN 600 MG TAB PO PRN (05:43)
--- NOTE | 2022-05-05 06:38 | DN ---
Date of Procedure: 05/04/2022 Surgeon: Alfredo Ozuna Covering, Dr. Webber. Final Diagnoses: 1.Intrauterine , 39 weeks and 0 days of gestation, delivered. 2.Single live . 3.Influenza A. 4.Spontaneous labor. 5.Meconium staining of the amniotic fluid. 6.Weakness and fever caused by the viral syndrome. Procedure In Detail: Sadie Bustillo is a 26-year-old female, G2, P1, came in 1 day away from 39 weeks of gestation, term with some vague abdominal cramping sensation. However, her ma in complaint is fever and weakness. Her daughter has flu symptoms and she was given prophylactic Finley iflu. She came to Labor Room for evaluation and she is tested positive for influenza A. Otherwise, her CBC tested showing leukocytosis of 14,000 and chemistry profile was normal. H/H were stable with a hemoglobin value of 11. Otherwise, there is somewhat of maternal contractions mild, and tac hycardia was noted. The tachycardia responded by her viral syndrome to above 170 to 180, later on has decreased into a normal value. Overall condition is stable. In addition, I have obtained e chest x-ray showing a clear chest x-ray. I immediately put her on oral hydration, anti-fever medic ation, although she does not record a fever in the labor room. Her blood pressure was stable. She w as given continuation dose of Tamiflu. She was observed overnight and was mainly concerned with feta l tachycardia. Throughout the evening, her contractions became more closer and initially she was abo ut 2 cm during admission and early in the morning, she was between 2 to 3 cm dilated, 90% effaced, an d -2 in station. She was taken to active phase of labor at approximately 6:30 a.m. and I came into [facility] short while later to perform artificial rupture of membrane showing meconium staining. [facility] patient requested no artificial stimulation of contractions and therefore, she was let to labor sp ontaneously. She received IV Stadol for pain control and she labored in the next hours. Finally, e had reached complete cervical dilatation. However, the baby's head was in approximately 0 station and she was given the least of not an hour to labor down the head, and with the pushes, she was able to push the baby down to . Her legs were placed up on the stirrups, vaginal area prepped and washed with a dilute Betadine fluid. Then she was draped in a sterile fashion. 2% lidocaine was us ed for the anesthetic for the perineum area and I performed a midline episiotomy with pushes and afte r the episiotomy, head was easily delivered, followed by reduction of the nuchal cord overhead, follo wed by delivery of the shoulders. However, before completing the delivery, I did thoroughly suction baby's nose and mouth with a bulb suction and then delivered the shoulders, body and delivery finally completed. Cord was clamped and cut and baby passed on to the nursing staff. Cord blood obtained. Placenta delivered intact spontaneously in Schultze presentation. Aggressive fundal massage was don e. The perineum showing midline episiotomy, no extensions. Therefore, 2-0 chromic suture was used t o repair the midline episiotomy without any complications and total EBL was approximately 450 cc. A well baby delivered at 1708 hour on 05/04/2022. It was a baby girl, scores 8 and 9, weight 8 p ounds 8 ounces, 3865 g. A well baby delivered. BW/MODL Voice ID: [id number] Report ID: [id number]
[2022-05-05] MEDS: OSELTAMIVIR 75 MG CAP PO SCH (08:40)
[2022-05-05] MEDS ORDERED: BISACODYL 10 MG RECTAL SUPP RC ONE (12:28)
[2022-05-05 16:56] VITALS: BP 122/57; TEMP 97.4
--- NOTE | 2022-05-06 00:39 | DS ---
Date of Discharge: 05/05/[address] Webber. Final Discharge Diagnoses: 1.Intrauterine , 39 weeks of gestation, delivered. 2.Single live . 3.Viral syndrome influenza A. 4.Spontaneous labor. 5.Meconium staining of the amniotic fluid. 6.Weakness and fever caused by the virus syndrome. Hospital Course: Sadie is a female, 26-year-old, G2, now P2, came to the hospital with a j oining the early evening of 05/03/2022 complaining of weakness, fever, viral syndrome, not feeling we ll and contractions. She was worked up for flu and she was positive for influenza A and I continued her oral medication of Tamiflu and also oral hydration and symptomatic relief. White cell count was high, baby was tachycardic. Therefore, she was observed in the hospital. Other workup included chem istry profile by blood and that was normal. Chest x-ray that was normal. Throughout the evening, sh e continued to contraction and kicking to active phase of labor. She decided to conduct this labor naturally without any Pitocin and artificial rupture of membrane wa s done and showing meconium staining of fluid and she labored throughout the morning into the afterno on. Finally, she had a vaginal delivery. She gave to a female baby, Apgars were 9 and 9. Samy ght 8 pounds 8 ounces at 1708 hours. Her delivery was benign and care was also normal. T he next morning, her uterus was firm with a minimal amount of vaginal lochia. The patient wishes to go home. Therefore, she was sent home in good and stable condition. Disposition: Home. Condition: Stable. Prescription: Tylenol No.3, #20, 1 to 2 tablets p.o. q.4-6 hours p.r.n. for pain and she was instruc mateus to continue her Tamiflu at home as previously directed and also vitamins. Followup: Discussed with her clinic doctor, Dr. Webber, during the next 4 weeks. BW/MODL Voice ID: [id number] Report ID: [id number]
[2022-05-06 10:42] LABS: HBsAG Nonreactive (Nonreactive)
== END 2022-05-05 19:05 | disposition home or self-care (01) | DRG 807 ==
LOC: L&D 17:51 → 2ND-WC 20:00
PROVIDERS: ADMIT Obstetrics & Gynecology; ATTEND Obstetrics & Gynecology
PROC: 10E0XZZ Delivery of Products of Conception, External Approach (ICD-10-PCS; principal; 2022-05-03)
PROC: 10907ZC Drainage of Amniotic Fluid, Therapeutic from Products of Conception, Via Natural or Artificial Opening (ICD-10-PCS; 2022-05-03)
DX: O99.52 Diseases of the respiratory system complicating childbirth (principal); Z37.0 Single live birth; O77.0 Labor and delivery complicated by meconium in amniotic fluid; J10.1 Influenza due to other identified influenza virus with other respiratory manifestations; O75.5 Delayed delivery after artificial rupture of membranes; Z3A.39 39 weeks gestation of pregnancy; Z20.822 Contact with and (suspected) exposure to COVID-19
CPT/HCPCS: 0240U; 36415; 71046; 80053; 81001; 82947; 85025; 86592; 86762; 86850; 86900; 86901; 87340; 88307; 99218; G0433; J0595; J2210; J2550; J2590; J7120

== ENCOUNTER 2024-04-21 17:01 | Emergency (ER) | payer BC, OTHER, SELFPAY ==
--- NOTE | 2024-04-21 17:54 | RAD REPORT ---
EXAMINATION: TWO VIEW CHEST XR CLINICAL INDICATION: Chest pain;Dyspnea TECHNIQUE: 2 views of the chest was performed. COMPARISON: 05/03/2022 FINDINGS: The lungs are well inflated and clear. The heart is normal in size. No displaced fractures evident. IMPRESSION: No acute or significant abnormalities.
[2024-04-21 19:38] LABS: Absolute Eosinophils 0.1 K/uL (0-0.5); Absolute Lymphocytes (CBC) 3.4 K/uL (0.7-4.9); Absolute Monocytes 0.6 K/uL (0.1-1.3); Absolute Neutrophil 5.7 K/uL (1.8-8.0); Basophils % 0.3 % (0-1.3); Eosinophils % 1.3 % (0-4.4); Hematocrit 41.3 % (36.0-45.0); Hemoglobin 14.2 g/dL (12.0-15.0); MCH 30.8 pg (27.0-35.0); MCHC 34.4 g/dL (32.0-36.0); MCV 89.5 fL (80-100); MPV 6.8 fL (7.6-11.3); Monocytes % 5.6 % (3.3-12.3); Neutrophils % 57.8 % (41.7-73.7); Nucleated Red Blood Cells % 0.1 % (0-0); Platelets 352 thou/uL (152-406); RBC Red Blood Cell Count 4.61 M/uL (3.86-4.86); Red Cell Distribution Width 13.6 % (12.1-15.2)
[2024-04-21 20:04] LABS: Anion Gap 7.7 mEq/L (5.0-15.0); BUN Blood Urea Nitrogen 8 mg/dL (7-18); Bicarbonate 28 mEq/L (21-32); Glomerular Filtration Rate 113 ml/min (=/>90); Glucose Level 84 mg/dL (74-106); NT PRO-BNP 25 pg/mL (<125); Potassium 3.7 mEq/L (3.5-5.1); Sodium Level 135 mEq/L (136-145)
[2024-04-21 20:10] LABS: Troponin High Sensitivity < 3.0 pg/mL (<58.9)
--- NOTE | 2024-04-21 20:30 | EDPHYS ---
Physician Documentation [facility] Name: Sadie Mcintosh Age: 28 yrs Sex: Female : 1995 Arrival Date: 04/21/2024 Time: 17:01 Bed 12 Private MD: ED Physician Reggie Almonte HPI: 04/21 17:48 This 28 yrs old Female presents to ER via Ambulatory with complaints of Chest rn Pain, Breathing Difficulty. 17:48 The patient or guardian reports chest pain that is located primarily in the anterior rn chest wall, left. The pain does not radiate. Associated signs and symptoms: Pertinent negatives: abdominal pain, dizziness, palpitations, shortness of breath, syncope, vomiting. The chest pain is described as sharp. Duration: The patient or guardian reports multiple episodes, that are intermittent. Modifying factors: The symptoms are alleviated by nothing. the symptoms are aggravated by nothing. Severity of pain: At its worst the pain was mild in the emergency department the pain is unchanged. The patient has not experienced similar symptoms in the past. Patient reports left upper outer chest pain that began a few hours ago. Not better or worse but has not gone away. No fever or chills. Reports under a lot of stress at work and at home recently. No trauma. No cough. No infectious symptoms. No abdominal pain. No nausea or vomiting. No history of DVT or PE. No hemoptysis.. Historical: - Allergies: 17:42 No Known Allergies; ko1 - Home Meds: 17:42 None [Active]; ko1 - PMHx: 17:42 Anxiety; Depressive disorder; ko1 - PSHx: 17:42 Cholecystectomy; ko1 - Immunization history:: Adult Immunizations up to date. - Infectious Disease History:: Denies. - Social history:: Smoking status: Patient denies any tobacco usage or history of. - Family history:: not pertinent. - Hospitalizations: : No recent hospitalization is reported. ROS: 17:48 Constitutional: Negative for fever, chills, and weight loss, Cardiovascular: Positive rn for chest pain Respiratory: Negative for cough, wheezing, and pleuritic chest pain, Abdomen/GI: Negative for abdominal pain, nausea, vomiting, diarrhea, and constipation, MS/Extremity: Negative for injury and deformity, Skin: Negative for injury, rash, and discoloration, Neuro: Negative for headache, weakness, numbness, tingling, and seizure, Exam: 17:48 Constitutional: This is a well developed, well nourished patient who is awake, alert, rn appears anxious Head/Face: Normocephalic, atraumatic. ENT: No stridor Cardiovascular: Regular rate and rhythm. No pulse deficits. Respiratory: Mild tachypnea, pursed lip breathing but able to breathe better with coaching. Abdomen/GI: Soft, nontender MS/ Extremity: Pulses equal, no cyanosis. Neuro: Awake and alert, GCS 15 18:39 ECG was reviewed by the Attending Physician. rn Vital Signs: 17:38 BP 148 / 108; Pulse 94; Resp 17; Temp 97.2; Pulse Ox 100% ; ko1 20:37 BP 132 / 85; Pulse 87; Resp 16 S; Pulse Ox 99% on R/A; lg3 MDM: 17:11 Medical Screening Exam initiated rn 20:27 Differential diagnosis: acute pericarditis, anxiety, chest wall pain, costochondritis, rn gastroesophageal reflux disease (GERD), pleurisy, pneumothorax, pulmonary embolus. Data reviewed: vital signs, nurses notes, lab test result(s), EKG, radiologic studies, plain films, and as a result, I will discharge patient. Independent interpretation of the following test(s) in the Emergency Department X-Ray: My interpretation is Chest x-ray images negative for pneumonia or pneumothorax per my interpretation. Counseling: I had a detailed discussion with the patient and/or guardian regarding the historical points, exam findings, and any diagnostic results supporting the discharge/admit diagnosis, lab results, radiology results, the need for outpatient follow up, to return to the emergency department if symptoms worsen or persist or if there are any questions or concerns that arise at home. Special discussion: I discussed with the patient/guardian in detail that at this point there is no indication for admission to the hospital. It is understood, however, that if the symptoms persist or worsen the patient needs to return immediately for re-evaluation. 20:27 ED course: No acute findings and workup including negative D-dimer and troponin. Chest rn x-ray negative. I have personally reviewed all of the results, including but not limited to blood tests and imaging deemed necessary to safely discharge this patient at this time. All results given to and printed out for patient. I personally went over all the results with the patient and answered all questions. Patient will follow-up with PCP and or specialist as discussed. Return precautions given and understood.. 04/21 17:47 Order name: Basic Metabolic Panel; Complete Time: 20:17 rn 04/21 17:47 Order name: CBC with Diff; Complete Time: 19:58 rn 04/21 17:47 Order name: D-Dimer; Complete Time: 19:58 rn 04/21 17:47 Order name: NT PRO-BNP; Complete Time: 20:17 rn 04/21 17:47 Order name: Troponin HS; Complete Time: 20:17 rn 04/21 17:13 Order name: XRAY Chest Pa And Lat (2 Views); Complete Time: 18:08 rn 04/21 17:13 Order name: EKG; Complete Time: 17: rn 04/21 17:13 Order name: EKG - Nurse/Tech; Complete Time: 18:01 rn 04/21 17:47 Order name: Cardiac monitoring; Complete Time: 20:24 rn 04/21 17:47 Order name: IV Saline Lock; Complete Time: 19:30 rn 04/21 17:47 Order name: Labs collected and sent; Complete Time: 19:30 rn 04/21 17:47 Order name: O2 Per Protocol; Complete Time: 20:24 rn 04/21 17:47 Order name: O2 Sat Monitoring; Complete Time: 20:24 rn EC:39 Rate is 96 beats/min. Rhythm is regular. QRS [place] is Normal. MT interval is normal. QRS rn interval is normal. QT interval is normal. No Q waves. T waves are Normal. No ST changes noted. Clinical impression: Normal ECG. Interpreted by me. Reviewed by me. Administered Medications: No medications were administered Disposition Summary: 04/21/24 20:29 Discharge Ordered Notes: Location: Home rn Problem: new rn Symptoms: have improved rn Condition: Stable rn Diagnosis - Chest pain, unspecified rn - Acute stress reaction rn Followup: rn - With: Private Physician - When: As needed - Reason: Recheck today's complaints, Re-evaluation by your physician Discharge Instructions: - Discharge Summary Sheet rn - Nonspecific Chest Pain, Adult rn Forms: - Medication Reconciliation Form rn - Antibiotic industrial electrician journeyman - Prescription Opioid Use rn - Patient Portal Instructions rn - Leadership Thank You Letter rn Signatures: Dispatcher [employer] Reggie Collins MD MD rn Joy Adam RN RN ko1 Corrections: (The following items were deleted from the chart) 17:50 17:47 Chest Single View+RAD.RAD.BRZ ordered. CALVIN SIMPSON
--- NOTE | 2024-04-21 20:30 | ER ---
Nurse's Notes [facility] Name: Sadie Mcintosh Age: 28 yrs Sex: Female : 1995 Arrival Date: 04/21/2024 Time: 17:01 Bed 12 Private MD: Diagnosis: Chest pain, unspecified;Acute stress reaction Presentation: 04/21 17:38 Chief complaint: Patient states: left sided chest pain, sharp, shooting since 1625. ko1 Coronavirus screen: At this time, the client does not indicate any symptoms associated with coronavirus-19. Ebola Screen: No symptoms or risks identified at this time. Initial Sepsis Screen: Does the patient meet any 2 criteria? No. Patient's initial sepsis screen is negative. Does the patient have a suspected source of infection? No. Patient's initial sepsis screen is negative. Risk Assessment: Do you want to hurt yourself or someone else? Patient reports no desire to harm self or others. Onset of symptoms was April 21, 2024. 17:38 Method Of Arrival: Ambulatory ko1 17:38 Acuity: PATRICIA 3 ko1 Triage Assessment: 17:42 General: Appears in no apparent distress. Behavior is appropriate for age, anxious. ko1 Pain: Complains of pain in anterior aspect of left upper chest. Cardiovascular: Reports chest pain. Historical: - Allergies: 17:42 No Known Allergies; ko1 - Home Meds: 17:42 None [Active]; ko1 - PMHx: 17:42 Anxiety; Depressive disorder; ko1 - PSHx: 17:42 Cholecystectomy; ko1 - Immunization history:: Adult Immunizations up to date. - Infectious Disease History:: Denies. - Social history:: Smoking status: Patient denies any tobacco usage or history of. - Family history:: not pertinent. - Hospitalizations: : No recent hospitalization is reported. Screenin:37 [facility] ED Fall Risk Assessment (Adult) History of falling in the last 3 months, lg3 including since admission No falls in past 3 months (0 pts) Confusion or Disorientation No (0 pts) Intoxicated or Sedated No (0 pts) Impaired Gait No (0 pts) Mobility Assist Device Used No (0 pt) Altered Elimination No (0 pt) Score/Fall Risk Level 0 - 2 = Low Risk Oriented to surroundings, Maintained a safe environment, Educated pt \T\ family on fall prevention, incl call for assistance when getting out of bed, Assessed \T\ reinforced patient's understanding of fall precautions. Abuse screen: Denies threats or abuse. Denies injuries from another. Nutritional screening: No deficits noted. Tuberculosis screening: No symptoms or risk factors identified. Assessment: 20:37 General: Appears in no apparent distress. comfortable, Behavior is calm, cooperative. lg3 Pain: Complains of pain in anterior aspect of left upper chest Pain does not radiate. Pain currently is 3 out of 10 on a pain scale. Pain began 2 hours ago. Neuro: No deficits noted. [place] Agitation-Sedation Scale (RASS): 0 - Alert and Calm Level of Consciousness is awake, alert, obeys commands, Oriented to person, place, time, situation. Cardiovascular: No deficits noted. Heart tones S1 S2 present Capillary refill < 3 seconds Clubbing of nail beds is absent JVD is absent Patient's skin is warm and dry. Respiratory: No deficits noted. Airway is patent Respiratory effort is even, unlabored, Respiratory pattern is regular, symmetrical. GI: No deficits noted. No signs and/or symptoms were reported involving the gastrointestinal system. : No signs and/or symptoms were reported regarding the genitourinary system. EENT: No deficits noted. No signs and/or symptoms were reported regarding the EENT system. Derm: No deficits noted. No signs and/or symptoms reported regarding the dermatologic system. Skin is intact, is healthy with good turgor, Skin is dry, Skin is normal, Skin temperature is warm. Musculoskeletal: No deficits noted. No signs and/or symptoms reported regarding the musculoskeletal system. Circulation, motion, and sensation intact. Range of motion: intact in all extremities. Vital Signs: 17:38 BP 148 / 108; Pulse 94; Resp 17; Temp 97.2; Pulse Ox 100% ; ko1 20:37 BP 132 / 85; Pulse 87; Resp 16 S; Pulse Ox 99% on R/A; lg3 ED Course: 17:03 Patient arrived in ED. mg5 17:11 Reggie Almonte MD is Attending Physician. rn 17:40 EKG done, by ED staff, reviewed by Reggie Almonte MD. ko1 17:42 Triage completed. ko1 17:42 Arm band placed on right wrist. ko1 17:45 XRAY Chest Pa And Lat (2 Views) In Process Unspecified. EDMS 19:30 Basic Metabolic Panel Sent. vk 19:30 CBC with Diff Sent. vk 19:30 D-Dimer Sent. vk 19:30 NT PRO-BNP Sent. vk 19:30 Troponin HS Sent. vk 19:31 Inserted saline lock: 22 gauge in right antecubital area, using aseptic technique. vk Blood collected. Flushed with 10 mL NS. 19:33 Initial lab(s) drawn, by me, sent to lab. vk 20:37 Patient has correct armband on for positive identification. Placed in gown. Bed in low lg3 position. Call light in reach. Side rails up X 1. Client placed on continuous cardiac and pulse oximetry monitoring. NIBP monitoring applied. surveillance system monitor on. Door closed. Noise minimized. Warm blanket given. Pillow given. 20:37 No provider procedures requiring assistance completed. IV discontinued, intact, lg3 bleeding controlled, No redness/swelling at site. Pressure dressing applied. Patient maintains SpO2 saturation greater than 95% on room air. Administered Medications: No medications were administered Medication: 20:37 VIS not applicable for this client. lg3 Outcome: 20:29 Discharge ordered by . rn 20:37 Discharged to home ambulatory, lg3 20:37 Condition: stable 20:37 Discharge instructions given to patient, Instructed on discharge instructions, follow up and referral plans. Demonstrated understanding of instructions, follow-up care, 20:39 Patient left the ED. lg3 Signatures: Dispatcher [employer] EDMS Reggie Almonte MD MD rn Able, Lacie, RN RN lg3 Joy Adam, HIRAM RN Cate Joaquin [facility] Kathy Salazar vk
[2024-04-21 20:57] VITALS: TEMP 97.2
[2024-04-21 21:02] VITALS: BP 132/85; O2SAT 99
== END 2024-04-21 20:39 | disposition home or self-care (01) ==
LOC: ER 17:01
DX: F43.0 Acute stress reaction (principal); F32.A Depression, unspecified; F41.9 Anxiety disorder, unspecified
CPT/HCPCS: 36415; 71046; 80048; 83880; 84484; 85025; 85379